=== PATIENT | male | born 1995 | race Caucasian/White ===

== ENCOUNTER 2017-11-18 13:18 | Emergency (ER) | payer MEDICAID, OTHER ==
[2017-11-18 14:21] VITALS: BP 124/67
--- NOTE | 2017-11-18 14:38 | UC ---
Throat Pain/Nasal Jose Luis HPI - HPI Summary HPI Summary: Pt presents with a ST that started this morning. He tells me that he has been around many immediate family members that have been diagnosed with influenza. He is requesting prophylactic treatment with Tamiflu. He denies fever, chills, headache, dizziness, body aches, cough, SOB, chest pain, abdominal pain, N/V/D/C - History of Current Complaint Hx Obtained From: Patient Onset/Duration: Sudden Onset Severity: Mild Pain Intensity: 2 Pain Scale Used: 0-10 Numeric <Darion Chisholm - Last Filed: 11/18/17 15:55> <Syl Mercado - Last Filed: 11/18/17 16:16> - History of Current Complaint Chief Complaint: UCGeneralIllness Stated Complaint: SORE THROAT Time Seen by Provider: 11/18/17 14:24 - Allergies/Home Medications Allergies/Adverse Reactions: Allergies Allergy/AdvReac Type Severity Reaction Status Date / Time No Known Allergies Allergy Verified 11/18/17 14:16 PMH/Surg Hx/FS Hx/Imm Hx Previously Healthy: Yes - Surgical History Surgical History: None - Social History Occupation: Student Lives: Dormitory/Roommates Alcohol Use: None Substance Use Type: None Smoking Status (MU): Never Smoked Tobacco - Immunization History Most Recent Influenza Vaccination: never Vaccination Up to Date: Yes <Darion Chisholm - Last Filed: 11/18/17 15:55> Review of Systems Constitutional: Negative Skin: Negative Eyes: Negative ENT: Sore Throat Respiratory: Negative Cardiovascular: Negative Gastrointestinal: Negative Neurovascular: Negative Neurological: Negative Psychological: Negative All Other Systems Reviewed And Are Negative: Yes <Darion Chisholm - Last Filed: 11/18/17 15:55> Physical Exam Triage Information Reviewed: Yes Appearance: Well-Appearing, Well-Nourished Vital Signs: Initial Vital Signs Temp 98.1 F 11/18/17 14:17 Pulse 70 11/18/17 14:17 Resp 16 11/18/17 14:17 BP 124/67 11/18/17 14:17 Pulse Ox 99 11/18/17 14:17 Vital Signs Reviewed: Yes Eyes: Positive: Conjunctiva Clear. Negative: Conjunctiva Inflamed, Discharge ENT: Positive: Hearing grossly normal, Pharynx normal, TMs normal, Uvula midline. Negative: Pharyngeal erythema, Nasal congestion, Nasal drainage, TM bulging, TM dull, TM red, Tonsillar swelling, Tonsillar exudate, Muffled voice, Hoarse voice, Sinus tenderness Neck: Positive: Supple, Nontender, No Lymphadenopathy Respiratory: Positive: Chest non-tender, Lungs clear, Normal breath sounds, No respiratory distress, No accessory muscle use Cardiovascular: Positive: RRR, No Murmur, Pulses Normal Neurological: Positive: Alert Psychological: Positive: Age Appropriate Behavior Skin: Negative: rashes <Darion Chisholm - Last Filed: 11/18/17 15:55> Vital Signs: Initial Vital Signs Temp 98.1 F 11/18/17 14:17 Pulse 70 11/18/17 14:17 Resp 16 11/18/17 14:17 BP 124/67 11/18/17 14:17 Pulse Ox 99 11/18/17 14:17 <Syl Mercado - Last Filed: 11/18/17 16:16> Throat Pain/Nasal Course/Dx - Course Course Of Treatment: Sore throat. Given his close contacts with family members dx'd with influenza, will provide him with Tamiflu prophylaxis. - Differential Dx/Diagnosis Differential Diagnosis/HQI/PQRI: Influenza, Laryngitis, Mononucleosis, Peritonsillar Abscess, Pharyngitis, Tonsillitis, URI Provider Diagnoses: Sore throat <Darion Chisholm - Last Filed: 11/18/17 15:55> Discharge <Darion Chisholm - Last Filed: 11/18/17 15:55> <Syl Mercado - Last Filed: 11/18/17 16:16> - Discharge Plan Condition: Stable Disposition: HOME Prescriptions: Oseltamivir CAP* [Tamiflu CAP*] 75 mg PO DAILY #10 cap Patient Education Materials: Influenza (ED) Referrals: No Primary Care Phys,NOPCP [Primary Care Provider] - Additional Instructions: If you develop a fever, SOB, chest pain, new or worsening symptoms - please call your PCP or go to the ED. Attestation Statement User Type: Provider - I was available for consult. This patient was seen by the BEN. The patient was not presented to, seen by, or examined by me. -Chaparrita <Syl Mercado - Last Filed: 11/18/17 16:16>
== END 2017-11-18 15:23 | disposition home or self-care (01) ==
LOC: UCEAST 13:18
DX: J02.9 Acute pharyngitis, unspecified (principal); Z20.828 Contact with and (suspected) exposure to other viral communicable diseases
CPT/HCPCS: 87502; 87651; 99202; G0463